=== PATIENT | male | born 2005 | race Caucasian/White ===

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

== ENCOUNTER 2024-11-25 01:37 | Emergency (ER) | payer OTHER, SELFPAY ==
[2024-11-25] VITALS (20 sets, daily range): BP systolic 111–187; BP diastolic 54–88; PULSE 65–90; RESP 16–24; TEMP 36.2; O2SAT 94–98; BMI 72.3
--- NOTE | 2024-11-25 01:37 | ED.GENADULT ---
HPI - General Adult <Jen Smith MD - Last Filed: 11/26/24 01:22> General Chief complaint: Toxicology Problem Stated complaint: SI swallowed 2 bottles advil non verbal autistic Time Seen by Provider: 11/25/24 01:37 History of Present Illness HPI narrative: 18-year-old individual history of autism, depression, transgender currently on estrogen and progesterone (she her pronouns), who knocked on her sisters door around 12 30 and told her that she had taken approximately 150 tablets of ibuprofen, 30gm, around 12:15. Denies any other self-harm or pills. Her sister notes that she has been doing fairly well since 2018 after she came trans. No obvious stressors today that seemed to have caused problems that would lead to an acute suicide attempt. She has had prior suicide attempts past. The patient is quite somnolent, sister offers much of the history. Sister notes there was a small amount of emesis with some pill particles appreciated. Patient is becoming more somnolent as she is being triaged. Related Data Home Medications Medication Instructions Recorded Confirmed Bupropion 150 mg PO 03/23/24 11/23/24 Prazosin 1 mg PO 03/23/24 11/23/24 aripiprazole 1 mg/mL oral solution 2 mg PO DAILY 03/23/24 11/23/24 escitalopram oxalate 5 mg/5 mL 15 mg PO DAILY 03/23/24 11/23/24 oral solution famotidine 40 mg/5 mL (8 mg/mL) 40 mg PO DAILY 03/23/24 11/23/24 oral suspension Previous Rx's Medication Instructions Recorded ondansetron HCl 4 mg/5 mL oral 4 mg (5 mL) PO Q8H PRN nausea and 05/22/24 solution vomiting #50 mL progesterone micronized 200 mg 200 mg PO BEDTIME #30 caps 10/19/24 capsule estradiol 1 mg tablet 1 mg PO DAILY #60 tabs 11/23/24 Allergies Allergy/AdvReac Type Severity Reaction Status Date / Time No Known Drug Allergies Allergy Verified 11/23/24 11:03 Review of Systems <Jen Smith MD - Last Filed: 11/26/24 01:22> Review of Systems ROS Unobtainable: Unobtainable due to mental condition Patient History <Jen Smith MD - Last Filed: 11/26/24 01:22> Medical History (Updated 11/25/24 @ 03:38 by Jen Smith MD) Night terrors Sensory processing difficulty ADHD Autism Anxiety Gender dysphoria Social History Smoking Status: Never smoker alcohol intake frequency: 0-2 drinks per day Exam <Jen Smith MD - Last Filed: 11/26/24 01:22> Initial Vital Signs Initial Vital Signs: Vital Signs Temperature 97.2 F L 11/25/24 01:38 Pulse Rate 85 11/25/24 01:38 Respiratory Rate 16 11/25/24 01:38 Blood Pressure 141/77 H 11/25/24 01:38 Pulse Oximetry 98 11/25/24 01:38 Oxygen Delivery Method Room Air 11/25/24 01:38 General: Fatigued, pale, increasing lethargy, falling asleep during questions difficulty with walking HEENT: Moist mucous membranes, normal sclera with reactive pupils, Respiratory: Lungs are clear to auscultation, no wheezing no rales no rhonchi. Full and symmetrical air movement Cardiac: Regular rate and rhythm no murmurs no bruits Abdomen: Soft, mild epigastric tenderness, no rebound or guarding Skin: Pale, Warm and dry, no rashes Neurologic: Grossly neurologically intact with no obvious asymmetries or abnormalities Extremities: No trauma, no evidence of self cutting Psych: Flat affect, minimally interactive <Lucinda Russell DO - Last Filed: 11/25/24 16:23> Initial Vital Signs Initial Vital Signs: Vital Signs Temperature 97.2 F L 11/25/24 01:38 Pulse Rate 85 11/25/24 01:38 Respiratory Rate 16 11/25/24 01:38 Blood Pressure 141/77 H 11/25/24 01:38 Pulse Oximetry 98 11/25/24 01:38 Oxygen Delivery Method Room Air 11/25/24 01:38 Course <Jen Smith MD - Last Filed: 11/26/24 01:22> Orders Ordered: Discontinued Medications Sodium Chloride (Normal Saline 0.9%) 1,000 mls @ 150 mls/hr IV CONT JAKE Last Infusion: 11/25/24 14:35 Dose: Infused Documented By: Infusion: 11/25/24 12:50 Dose: 150 mls/hr Documented By: Infusion: 11/25/24 12:03 Dose: 0 mls/hr Documented By: Admin: 11/25/24 10:02 Dose: 150 mls/hr Documented By: Infusion: 11/25/24 09:19 Dose: Infused Documented By: Admin: 11/25/24 02:38 Dose: 150 mls/hr Documented By: RLC Sodium Chloride (Normal Saline 0.9%) 1,000 mls @ 1,000 mls/hr IV BOLUS ONE Stop: 11/25/24 02:56 Last Infusion: 11/25/24 04:47 Dose: Infused Documented By: Admin: 11/25/24 02:09 Dose: 1,000 mls/hr Documented By: LS Vital Signs Vital signs: Vital Signs - 8 hr 11/25/24 14:30 11/25/24 14:31 11/25/24 14:31 Pulse Rate 68 75 Respiratory Rate 20 Blood Pressure 111/76 Pulse Oximetry 98 98 <uLcinda Russell, DO - Last Filed: 11/25/24 16:23> Orders Ordered: Discontinued Medications Sodium Chloride (Normal Saline 0.9%) 1,000 mls @ 150 mls/hr IV CONT JAKE Last Infusion: 11/25/24 14:35 Dose: Infused Documented By: Infusion: 11/25/24 12:50 Dose: 150 mls/hr Documented By: Infusion: 11/25/24 12:03 Dose: 0 mls/hr Documented By: Admin: 11/25/24 10:02 Dose: 150 mls/hr Documented By: Infusion: 11/25/24 09:19 Dose: Infused Documented By: Admin: 11/25/24 02:38 Dose: 150 mls/hr Documented By: RLC Sodium Chloride (Normal Saline 0.9%) 1,000 mls @ 1,000 mls/hr IV BOLUS ONE Stop: 11/25/24 02:56 Last Infusion: 11/25/24 04:47 Dose: Infused Documented By: Admin: 11/25/24 02:09 Dose: 1,000 mls/hr Documented By: LS Vital Signs Vital signs: Vital Signs - 8 hr 11/25/24 14:30 11/25/24 14:31 11/25/24 14:31 Pulse Rate 68 75 Respiratory Rate 20 Blood Pressure 111/76 Pulse Oximetry 98 98 Medical Decision Making <Jen Smith MD - Last Filed: 11/26/24 01:22> Lab Data 11/25/24 02:02 11/25/24 02:02 Labs: Lab Results 11/25/24 11/25/24 11/25/24 Range/Units 02:02 02:15 11:24 WBC 10.6 (4.5-11.0) X10^3/uL RBC 4.85 (4.5-5.9) X10^6/uL Hgb 12.9 L (13.5-17.5) g/dL Hct 39.4 L (41-53) % MCV 81.3 (80-100) fL MCH 26.5 (26-34) PG MCHC 32.6 (30-36) % RDW 14.4 (11.6-14.8) % Plt Count 231 (150-400) X10^3/uL Neut % (Auto) 62.1 (50-75) % Lymph % (Auto) 27.5 (25-40) % [place] % (Auto) 9.2 (3-14) % Eos % (Auto) 0.7 L (2-4) % Baso % (Auto) 0.5 (0-2) % Neut # (Auto) 6600 (8173-8438) /uL Lymph # (Auto) 2900 (0357-3921) /uL [place] # (Auto) 1000 H (0-900) /uL Eos # (Auto) 100 (0-450) /uL Baso # (Auto) 100 (0-100) /uL Sodium 140 (137-145) mmol/L Potassium 4.0 (3.4-5.1) mmol/L Chloride 105 (98-107) mmol/L Carbon Dioxide 25 (22-32) mmol/L BUN 11 (9-20) mg/dL Creatinine 0.87 (0.66-1.25) mg/dL Estimated GFR > 60 (>60) mL/min BUN/Creatinine Ratio 12.6 (6-22) Glucose 115 H (70-100) mg/dL Calcium 9.2 (8.4-10.2) mg/dL Total Bilirubin 0.5 (0.2-1.3) mg/dL AST 34 (17-59) IU/L ALT 36 (<50) IU/L Alkaline Phosphatase 123 (38-126) U/L Total Protein 7.3 (6.3-8.2) g/dL Albumin 4.3 (3.5-5.0) g/dL Globulin 3.0 (1.7-4.1) g/dL Albumin/Globulin Ratio 1.4 (1.0-2.8) Salicylates < 1.0 (<20) mg/dL U Opiates 300ng/mL cut Negative (Negative) Ur Oxycodone Screen Negative (Negative) Urine Methadone Screen Negative (Negative) Acetaminophen < 10 (10-30) ug/mL Ur Barbiturates Screen Negative (Negative) U Tricyclic Antidepress Negative (Negative) Ur Phencyclidine Scrn Negative (Negative) Ur Amphetamines Screen Negative (Negative) U Methamphetamines Scrn Negative (Negative) Ur MDMA Scrn (Ecstasy) Negative (Negative) U Benzodiazepines Scrn Negative (Negative) Urine Cocaine Screen Negative (Negative) U Marijuana (THC) Screen Negative (Negative) Urine pH Normal (Normal) Urine Specific [place] Normal (Normal) Ethyl Alcohol < 10 ( - 10) mg/dL Ur Creatinine Normal (Normal) SARS-CoV-2 (PCR) Negative (Negative) MDM Narrative Medical decision making narrative: CC:suicide attmept 30gm of ibuprofen Complicating co-morbidities: Autism, depression, transgender Data collected from: patient , medics, sister Social determinants of health that may influence the patients condition: History of depression, prior suicide attempts Medical records reviewed: Primary care notes reviewed Differential considered: Uncomplicated ibuprofen overdose, multi medication overdose, clearly suicidal attempt Exam documented above, pertinent findings include: Patient is somnolent, flat affect, poor eye contact currently protecting airway. Lab Test results independently reviewed as above. Pertinent findings: CBC is unremarkable Chemistries are reassuring with renal function No Tylenol, aspirin, alcohol Drug screen is negative Consultations: 150am care is reviewed with poison control. Patient has had approximately 30mg/kg dose and typically greater than 60mg/kg or more causes problems. Lab work is currently pending, suggested that acidosis may be an issue, symptoms typically peak approximately 6 hours after ingestion which will be about 6:00 a.m. this morning, watch respiratory status and support as needed contact poison control again there is also evidence of acetaminophen or salicylate Treatments: IV Fluid Re-evaluations: 330 patient is sleeping comfortably, respiratory status is stable, she is not requiring oxygen, heart rate and blood pressure are appropriate Discussion: 18-year-old woman who took 150 tablets of ibuprofen which is roughly equivalent to 30mg/kg (greater than 60 being toxic). She is somnolent and somewhat regretful. As long as vital signs stay as they are, she will be medically cleared at 6:00 a.m.. Will need to talk with [employer] OPERATOR regarding treatment after her acute suicide attempt. <Lucinda Russell, DO - Last Filed: 11/25/24 16:23> Lab Data Labs: Lab Results 11/25/24 11/25/24 11/25/24 Range/Units 02:02 02:15 11:24 WBC 10.6 (4.5-11.0) X10^3/uL RBC 4.85 (4.5-5.9) X10^6/uL Hgb 12.9 L (13.5-17.5) g/dL Hct 39.4 L (41-53) % MCV 81.3 (80-100) fL MCH 26.5 (26-34) PG MCHC 32.6 (30-36) % RDW 14.4 (11.6-14.8) % Plt Count 231 (150-400) X10^3/uL Neut % (Auto) 62.1 (50-75) % Lymph % (Auto) 27.5 (25-40) % [place] % (Auto) 9.2 (3-14) % Eos % (Auto) 0.7 L (2-4) % Baso % (Auto) 0.5 (0-2) % Neut # (Auto) 6600 (2575-6672) /uL Lymph # (Auto) 2900 (4766-3571) /uL [place] # (Auto) 1000 H (0-900) /uL Eos # (Auto) 100 (0-450) /uL Baso # (Auto) 100 (0-100) /uL Sodium 140 (137-145) mmol/L Potassium 4.0 (3.4-5.1) mmol/L Chloride 105 (98-107) mmol/L Carbon Dioxide 25 (22-32) mmol/L BUN 11 (9-20) mg/dL Creatinine 0.87 (0.66-1.25) mg/dL Estimated GFR > 60 (>60) mL/min BUN/Creatinine Ratio 12.6 (6-22) Glucose 115 H (70-100) mg/dL Calcium 9.2 (8.4-10.2) mg/dL Total Bilirubin 0.5 (0.2-1.3) mg/dL AST 34 (17-59) IU/L ALT 36 (<50) IU/L Alkaline Phosphatase 123 (38-126) U/L Total Protein 7.3 (6.3-8.2) g/dL Albumin 4.3 (3.5-5.0) g/dL Globulin 3.0 (1.7-4.1) g/dL Albumin/Globulin Ratio 1.4 (1.0-2.8) Salicylates < 1.0 (<20) mg/dL U Opiates 300ng/mL cut Negative (Negative) Ur Oxycodone Screen Negative (Negative) Urine Methadone Screen Negative (Negative) Acetaminophen < 10 (10-30) ug/mL Ur Barbiturates Screen Negative (Negative) U Tricyclic Antidepress Negative (Negative) Ur Phencyclidine Scrn Negative (Negative) Ur Amphetamines Screen Negative (Negative) U Methamphetamines Scrn Negative (Negative) Ur MDMA Scrn (Ecstasy) Negative (Negative) U Benzodiazepines Scrn Negative (Negative) Urine Cocaine Screen Negative (Negative) U Marijuana (THC) Screen Negative (Negative) Urine pH Normal (Normal) Urine Specific [place] Normal (Normal) Ethyl Alcohol < 10 ( - 10) mg/dL Ur Creatinine Normal (Normal) SARS-CoV-2 (PCR) Negative (Negative) MDM Narrative Medical decision making narrative: CC:suicide attmept 30gm of ibuprofen Complicating co-morbidities: Autism, depression, transgender Data collected from: patient , medics, sister Social determinants of health that may influence the patients condition: History of depression, prior suicide attempts Medical records reviewed: Primary care notes reviewed Differential considered: Uncomplicated ibuprofen overdose, multi medication overdose, clearly suicidal attempt Exam documented above, pertinent findings include: Patient is somnolent, flat affect, poor eye contact currently protecting airway. Lab Test results independently reviewed as above. Pertinent findings: CBC is unremarkable Chemistries are reassuring with renal function No Tylenol, aspirin, alcohol Drug screen is negative Consultations: 150am care is reviewed with poison control. Patient has had approximately 30mg/kg dose and typically greater than 60mg/kg or more causes problems. Lab work is currently pending, suggested that acidosis may be an issue, symptoms typically peak approximately 6 hours after ingestion which will be about 6:00 a.m. this morning, watch respiratory status and support as needed contact poison control again there is also evidence of acetaminophen or salicylate Treatments: IV Fluid Re-evaluations: 330 patient is sleeping comfortably, respiratory status is stable, she is not requiring oxygen, heart rate and blood pressure are appropriate Discussion: 18-year-old woman who took 150 tablets of ibuprofen which is roughly equivalent to 30mg/kg (greater than 60 being toxic). She is somnolent and somewhat regretful. As long as vital signs stay as they are, she will be medically cleared at 6:00 a.m.. Will need to talk with [employer] OPERATOR regarding treatment after her acute suicide attempt. [id number] Russell, seen evaluated by myself. She was awake alert oriented voluntary for placement. Sister at bedside. Initially patient was voluntary to go to facility and treatment place. Social work evaluation and further discussion with family thought that inpatient treatment may not be the right choice for this particular patient with history of autism may do more harm than good. Parents now at bedside different sibling at bedside. There is a sibling at home who may not be safe patient. Arrangements have been made for patient to go to a hotel room with other family members to carefully watch over. Outpatient management has been arranged by social work. Patient is her own guardian. She contracts for safety however dependence fully on family for all daily living needs Discharge Plan Departure Patient Disposition: Home Clinical Impression: Autism, Suicidal ideation Intentional ibuprofen overdose Qualifiers: Encounter type: initial encounter Qualified Code(s): T39.312A - Poisoning by propionic acid derivatives, intentional self-harm, initial encounter Instructions: DI for Suicidal Ideation-Adult Activity Restrictions/Additional Instructions: *You have been diagnosed with overdose suicide attempt *What to do: At this time go to a hotel with family members. Please if you are feeling like he might hurt yourself please reach out. Keep all medication weapons and sharp objects locked away If you are feeling suicidal or having suicidal thoughts: Call: Suicide Hotline: 403 Visit: www.iamhurting.org Text: 845022 *Continue to take medications as directed *Follow up with your primary care provider in 2-3 days or call [phone] *Return to ER if you should have any new, worsening or concerning symptoms Prescriptions: No Action estradiol 1 mg tablet 1 mg PO DAILY Qty: 60 2RF famotidine 40 mg/5 mL (8 mg/mL) suspension for reconstitution 40 mg PO DAILY aripiprazole 1 mg/mL solution 2 mg PO DAILY escitalopram oxalate 5 mg/5 mL solution 15 mg PO DAILY Bupropion suspension 150 mg PO Prazosin suspension 1 mg PO Rx Instructions: 1-2mL QHS ondansetron HCl 4 mg/5 mL solution 4 mg PO Q8H PRN (Reason: nausea and vomiting) Qty: 50 0RF progesterone micronized 200 mg capsule 200 mg PO BEDTIME Qty: 30 2RF Referrals: Rosio Tavarez MD [Primary Care Provider] - Stand Alone Forms: Patient Portal/API/Survey
[2024-11-25] MEDS: SODIUM CHLORIDE 0.9% 1,000 ML 1000 ML IV (02:09)
[2024-11-25 02:12] LABS: Add Manual Diff / Slide Review NO; Basophils Absolute Auto 100 /uL (0-100); Basophils Percent Auto 0.5 % (0-2); Eosinophils Absolute Auto 100 /uL (0-450); Eosinophils Percent Auto 0.7 % (2-4); Hematocrit 39.4 % (41-53); Hemoglobin 12.9 g/dL (13.5-17.5); Lymphocytes Absolute Auto 2900 /uL (1100-4500); Lymphocytes Percent Auto 27.5 % (25-40); Mean Corpuscular HGB Conc 32.6 % (30-36); Mean Corpuscular Hemoglobin 26.5 PG (26-34); Mean Corpuscular Volume 81.3 fL (80-100); Monocytes Absolute Auto 1000 /uL (0-900); Monocytes Percent Auto 9.2 % (3-14); Neutrophils Absolute Auto 6600 /uL (1500-7000); Neutrophils Percent Auto 62.1 % (50-75); Platelet Count 231 X10^3/uL (150-400); Red Blood Cell Count 4.85 X10^6/uL (4.5-5.9); Red Cell Distribution Width 14.4 % (11.6-14.8); White Blood Cell Count 10.6 X10^3/uL (4.5-11.0)
[2024-11-25 02:24] LABS: Acetaminophen < 10 ug/mL (10-30); Alanine Aminotransferase 36 IU/L (<50); Albumin 4.3 g/dL (3.5-5.0); Albumin Globulin Ratio 1.4 (1.0-2.8); Alkaline Phosphatase 123 U/L (38-126); Aspartate Aminotransferase 34 IU/L (17-59); BUN Creatinine Ratio 12.6 (6-22); Bilirubin Total 0.5 mg/dL (0.2-1.3); Blood Urea Nitrogen 11 mg/dL (9-20); Calcium 9.2 mg/dL (8.4-10.2); Carbon Dioxide 25 mmol/L (22-32); Chloride 105 mmol/L (98-107); Estimated Glomerular Filt Rate > 60 mL/min (>60); Ethanol (ETOH) < 10 mg/dL; Glucose 115 mg/dL (70-100); HEMOLYSIS < 15 (0-50); Salicylate < 1.0 mg/dL (<20); Sodium 140 mmol/L (137-145); Total Protein 7.3 g/dL (6.3-8.2)
[2024-11-25 02:25] LABS: UR Morphine/Opiate cutoff 300 Negative (Negative); Ur Creatinine Normal (Normal); Ur Specific Gravity Normal (Normal); Urine Amphetamines Negative (Negative); Urine Barbiturates Negative (Negative); Urine Benzodiazepines Negative (Negative); Urine Cocaine Negative (Negative); Urine MDMA Negative (Negative); Urine Methadone Negative (Negative); Urine Methamphetamines Negative (Negative); Urine Oxycodone Negative (Negative); Urine Phencyclidine Negative (Negative); Urine Tetrahydrocannabinol Negative (Negative); Urine Tricyclic Antidepressant Negative (Negative); Urine pH Normal (Normal)
[2024-11-25] MEDS: SODIUM CHLORIDE 0.9% 1,000 ML 150 ML IV ×2 (02:38→10:02)
--- NOTE | 2024-11-25 04:19 | PC.NURSE ---
Pt is receiving 1:1 monitoring d/t high suicide risk. Pt is calm and following direction at this time, selectively responsive to questions. Family member is bedside.
--- NOTE | 2024-11-25 08:38 | PC.NURSE ---
This RN took phone call from [place] at [facility] poison control and informed them of information they were requesting. They informed this RN that they were closing this case.
--- NOTE | 2024-11-25 10:29 | PC.NURSE ---
DIGITAL SALES MANAGER Note: Patient support person arrived, Annmarie. Consent from patient for person to come back to room obtained, 1020.
[2024-11-25 12:03] LABS: COVID19 -Nasal RAPID Negative (Negative)
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
== END 2024-11-25 14:44 | disposition home or self-care (01) ==
PROVIDERS: Emergency Medicine; Emergency Provider Emergency Medicine; PCP Family Medicine
DX: T39.312A Poisoning by propionic acid derivatives, intentional self-harm, initial encounter (principal); R45.851 Suicidal ideations; F84.0 Autistic disorder
CPT/HCPCS: 36415; 80053; 80305; 80320; 80329; 85025; 87635; 96360; 96361; 99285; G0480

== ENCOUNTER → 2024-12-28 14:19 | Outpatient (CLI) | payer OTHER, SELFPAY ==
[2024-12-28 15:52] LABS: Hematocrit 39.8 % (41-53); Hemoglobin 13.1 g/dL (13.5-17.5); Mean Corpuscular Hemoglobin 27.1 PG (26-34); Mean Corpuscular Volume 82.3 fL (80-100); Platelet Count 239 X10^3/uL (150-400); Red Blood Cell Count 4.84 X10^6/uL (4.5-5.9); Red Cell Distribution Width 14.3 % (11.6-14.8); White Blood Cell Count 8.9 X10^3/uL (4.5-11.0)
[2024-12-28 16:11] LABS: Lithium 0.2 mmol/L (0.6-1.2)
[2024-12-28 16:15] LABS: Alanine Aminotransferase 42 IU/L (<50); Albumin 4.1 g/dL (3.5-5.0); Albumin Globulin Ratio 1.7 (1.0-2.8); Alkaline Phosphatase 95 U/L (38-126); Aspartate Aminotransferase 39 IU/L (17-59); Bilirubin Total 0.7 mg/dL (0.2-1.3); Blood Urea Nitrogen 7 mg/dL (9-20); Calcium 9.2 mg/dL (8.4-10.2); Carbon Dioxide 24 mmol/L (22-32); Chloride 105 mmol/L (98-107); Cholesterol 156 mg/dL (140-199); Estimated Glomerular Filt Rate > 60 mL/min (>60); Globulin 2.4 g/dL (1.7-4.1); Glucose 99 mg/dL (70-99); HDL Cholesterol 48 mg/dL (40-60); HEMOLYSIS < 15 (0-50); LDL Cholesterol Calculated 89 mg/dL (<100); Potassium 4.1 mmol/L (3.4-5.1); Sodium 141 mmol/L (137-145); Total Protein 6.5 g/dL (6.3-8.2); Triglycerides 95 mg/dL (35-150)
[2024-12-28 16:44] LABS: Thyroid Stimulating Hormone 1.61 uIU/mL (0.47-4.68)
== END ==
LOC: LAB 14:21
PROVIDERS: PCP Family Medicine; Referring Provider Psychiatry & Neurology Psychiatry; Visit Provider Psychiatry & Neurology Psychiatry
DX: F33.1 Major depressive disorder, recurrent, moderate (principal); F41.1 Generalized anxiety disorder; F43.10 Post-traumatic stress disorder, unspecified; F90.0 Attention-deficit hyperactivity disorder, predominantly inattentive type; G47.00 Insomnia, unspecified
CPT/HCPCS: 36415; 80053; 80061; 80178; 84443; 85027